=== PATIENT | male | born 1960 | race Caucasian/White ===

== ENCOUNTER → 2018-11-24 | Outpatient (CLI) | payer BC ==
[~2018-11-24] MED LIST: ASPI-496 PO; ATOR20TA37 PO; METO25TA35 PO; OMNIPAQUE 350 MG/ML, 150 ML BOTTLE ONE
== END | disposition home or self-care (01) ==
LOC: CFH 10:20
PROVIDERS: ATTEND Internal Medicine Cardiovascular Disease
DX: I48.91 Unspecified atrial fibrillation (principal)
CPT/HCPCS: 71046; 75572; Q9967

== ENCOUNTER 2018-11-29 08:21 | Observation (INO) | payer BC ==
[2018-11-24 11:48] VITALS: BP 127/76
[~2018-11-29] VITALS: Ht 190.5 cm; Wt 93.0 kg
[~2018-11-29 08:21] MED LIST changes: -OMNIPAQUE 350 MG/ML, 150 ML BOTTLE ONE
[2018-11-29] MEDS ORDERED: SODIUM CHLORIDE 0.9% 1,000 ML IV SCH (08:44)
[2018-11-29] MEDS ORDERED: SODIUM CHLORIDE 0.9% 1,000 ML IV ONE (09:00)
[2018-11-29] MEDS ORDERED: PHENYLEPHRINE 10 MG/ML ONE (09:36)
[2018-11-29] MEDS ORDERED: LIDOCAINE 1%, 20ML ONE (09:36)
[2018-11-29] MEDS ORDERED: MIDAZOLAM 1 MG/ML, 2ML ONE (09:37)
[2018-11-29] MEDS ORDERED: FENTANYL PF 250 MCG/5ML ONE (09:38)
[2018-11-29] MEDS ORDERED: PROTAMINE SULFATE 10 MG/ML, 5ML ONE (10:03)
[2018-11-29] MEDS ORDERED: EPHEDRINE 50 MG/ML, 1ML ONE (10:09)
[2018-11-29] MEDS ORDERED: DEXAMETHASONE 4 MG/ML, 1ML ONE ×2 (10:09)
[2018-11-29] MEDS ORDERED: PROPOFOL 10 MG/ML, 20ML ONE (10:09)
[2018-11-29] MEDS ORDERED: ROCURONIUM 10MG/ML,5ML ONE (10:09)
[2018-11-29] MEDS ORDERED: ONDANSETRON 2MG/ML, 2ML ONE ×2 (10:09)
[2018-11-29] MEDS ORDERED: SUCCINYLCHOLINE 20 MG/ML, 10ML ONE (10:09)
[2018-11-29] MEDS ORDERED: HEPARIN 1,000 UNITS/ML, 10ML ONE ×3 (10:10→11:26)
[2018-11-29] MEDS ORDERED: ACETAMINOPHEN 325 MG TABLET PO PRN ×2 (12:00→12:30)
[2018-11-29] MEDS ORDERED: ZOLPIDEM 5MG TABLET PO PRN (12:00)
[2018-11-29] MEDS ORDERED: LABETALOL 5MG/ML, 20ML IV PRN (12:30)
[2018-11-29] MEDS ORDERED: MORPHINE SULFATE 4 MG/ML, 1ML IVPush PRN (12:30)
[2018-11-29] MEDS ORDERED: ONDANSETRON ODT 8 MG PO PRN (12:30)
[2018-11-29] MEDS ORDERED: PROMETHAZINE 12.5 MG SUPP PR PRN (12:30)
[2018-11-29] MEDS ORDERED: ALBUTEROL SULFATE 2.5 MG/3 ML NPPB PRN (12:30)
[2018-11-29] MEDS ORDERED: hydrALAzine 20 MG/ML, 1ML IV PRN (12:30)
[2018-11-29] MEDS ORDERED: METOPROLOL TARTRATE 25 MG TABLET PO PRN (12:30)
[2018-11-29] MEDS ORDERED: ONDANSETRON 2MG/ML, 2ML IV PRN (12:30)
[2018-11-29] MEDS ORDERED: EPHEDRINE 50 MG/ML, 1ML IVPush PRN (12:30)
[2018-11-29] MEDS ORDERED: MIDAZOLAM 1 MG/ML, 2ML IV PRN (12:30)
[2018-11-29] MEDS ORDERED: DIAZEPAM 5 MG/ML, 2ML IVPush PRN (12:30)
[2018-11-29] MEDS ORDERED: HYDROmorphone 2 MG/ML, 1ML IVPush PRN (12:30)
[2018-11-29] MEDS ORDERED: PROMETHAZINE 25 MG/ML, 1ML IV PRN (12:30)
[2018-11-29] MEDS ORDERED: OXYcodone 5 MG/5 ML ORAL.SOL UDC PO PRN (12:30)
[2018-11-29] MEDS ORDERED: FENTANYL PF 100 MCG/2ML IV PRN (12:30)
[2018-11-29] MEDS ORDERED: MEPERIDINE/PF 25MG/0.5ML IVPush PRN (12:30)
[2018-11-29] MEDS ORDERED: HALOPERIDOL 5 MG/ML IV PRN (12:30)
[2018-11-29 14:00] VITALS: BP 120/76
[2018-11-29] MEDS ORDERED: APIXABAN 5 MG TABLET PO ONE (14:30)
[2018-11-29 19:50] VITALS: BP 102/59
[2018-11-29] MEDS: APIXABAN 5 MG TABLET PO SCH (20:58)
[2018-11-29] MEDS ORDERED: ATORVASTATIN 20 MG TABLET PO SCH (21:00)
[2018-11-30 04:30] VITALS: BP 100/62
[2018-11-30 07:30] VITALS: BP 126/68
[2018-11-30] MEDS: APIXABAN 5 MG TABLET PO SCH (07:41)
[2018-11-30] MEDS ORDERED: ACET325T14 PO (08:40)
[2018-11-30] MEDS ORDERED: APIX5TAB PO (08:40)
[2018-11-30 13:30] VITALS: BP 107/66
== END 2018-11-30 09:55 | disposition home or self-care (01) ==
LOC: CACL 08:21 → ORIP 12:00 → 5SO 13:28 → DCLOUNGE 11-30 09:40
PROVIDERS: ADMIT Internal Medicine Cardiovascular Disease; ATTEND Internal Medicine Cardiovascular Disease
DX: I48.91 Unspecified atrial fibrillation (principal); I48.92 Unspecified atrial flutter; R00.2 Palpitations
CPT/HCPCS: 85347; 93308; 93312; 93321; 93325; 93613; 93656; 93662; C1730; C1732; C1759; C1766; C1893; C1894; G0378; J0330; J1100; J1644; J2250; J2370; J2405; J2704; J2720; J3010; J3490; 93621

== ENCOUNTER → 2019-04-24 | Outpatient (CLI) | payer BC ==
[~2019-04-24] MED LIST changes: +ACET325T14 PO; +APIX5TAB PO; +FLEC50TA25 PO; +OMNIPAQUE 350 MG/ML, 150 ML BOTTLE ONE
== END | disposition home or self-care (01) ==
LOC: CFH 12:52
PROVIDERS: ATTEND Internal Medicine Cardiovascular Disease
DX: I48.91 Unspecified atrial fibrillation (principal)
CPT/HCPCS: 71046; 75572; Q9967

== ENCOUNTER 2019-04-25 06:31 | Observation (INO) | payer BC ==
[2019-04-24 14:12] VITALS: BP 124/77
[2019-04-24 14:44] LABS: BASOPHILS # (AUTO) 0.02 x10^3/uL (0-0.1); BASOPHILS % (AUTO) 0 % (0-1); EOSINOPHILS # (AUTO) 0.08 x10^3/uL (0-0.4); EOSINOPHILS % (AUTO) 2 % (1-7); LYMPHOCYTES # (AUTO) 1.41 x10^3/uL (1-3.4); LYMPHOCYTES % (AUTO) 26 % (22-44); MD NO; MEAN CORPUSCULAR HEMOGLOBIN 32.8 pg (27.5-34.5); MEAN CORPUSCULAR HGB CONC 33.7 g/dL (33.2-36.2); MEAN CORPUSCULAR VOLUME 97.1 fL (81-97); MEAN PLATELET VOLUME 8.6 fL (7.4-10.4); MONOCYTES # (AUTO) 0.46 x10^3/uL (0.2-0.8); MONOCYTES % (AUTO) 8 % (2-9); NEUTROPHILS % (AUTO) 64 % (42-75); PLATELET COUNT 209 x10^3/uL (130-400); RED BLOOD COUNT 4.52 x10^6/uL (4.38-5.82); RED CELL DISTRIBUTION WIDTH 12.8 % (9.4-14.8)
[2019-04-24 14:50] LABS: ALBUMIN 4.2 g/dL (3.4-5.0); ANION GAP 8 mmol/L (5-15); CALCIUM 8.4 mg/dL (8.5-10.1); CHLORIDE 105 mmol/L (98-107)
[2019-04-24 14:57] LABS: ALANINE AMINOTRANSFERASE 44 U/L (12-78); ALKALINE PHOSPHATASE 110 U/L (45-117); BILIRUBIN,TOTAL 0.6 mg/dL (0.2-1.0); CREATININE 0.74 mg/dL (0.7-1.3); TOTAL PROTEIN 7.4 g/dL (6.4-8.2)
[2019-04-24 14:59] LABS: INTERNATIONAL NORMALIZED RATIO 1.02 (0.93-1.1); PROTHROMBIN TIME 10.7 Seconds (9.6-11.5)
[~2019-04-25] VITALS: Ht 188 cm; Wt 98.0 kg
[~2019-04-25 06:31] MED LIST changes: -OMNIPAQUE 350 MG/ML, 150 ML BOTTLE ONE
[2019-04-25] MEDS ORDERED: SODIUM CHLORIDE 0.9% 1,000 ML IV SCH (06:44)
[2019-04-25] MEDS ORDERED: LIDOCAINE 1%, 20ML ONE (06:46)
[2019-04-25] MEDS ORDERED: SODIUM CHLORIDE 0.9% 1,000 ML IV ONE (07:00)
[2019-04-25] MEDS ORDERED: FENTANYL PF 250 MCG/5ML ONE (07:55)
[2019-04-25] MEDS ORDERED: MIDAZOLAM 1 MG/ML, 2ML ONE (07:55)
[2019-04-25] MEDS ORDERED: PROPOFOL 50 ML ONE (07:55)
[2019-04-25] MEDS ORDERED: ISOPROTERENOL 0.2MG/ML, 5ML ONE (07:56)
[2019-04-25] MEDS ORDERED: PROTAMINE SULFATE 10 MG/ML, 5ML ONE (07:56)
[2019-04-25] MEDS ORDERED: SUCCINYLCHOLINE 20 MG/ML, 10ML ONE (09:17)
[2019-04-25] MEDS ORDERED: ONDANSETRON 2MG/ML, 2ML ONE (09:17)
[2019-04-25] MEDS ORDERED: ROCURONIUM 10MG/ML,5ML ONE (09:17)
[2019-04-25] MEDS ORDERED: DEXAMETHASONE 4 MG/ML, 1ML ONE (09:17)
[2019-04-25] MEDS ORDERED: HEPARIN 1,000 UNITS/ML, 10ML ONE ×3 (09:17)
[2019-04-25] MEDS ORDERED: METOPROLOL TARTRATE 25 MG TABLET PO PRN (10:30)
[2019-04-25] MEDS ORDERED: DIAZEPAM 5 MG/ML, 2ML IVPush PRN (11:00)
[2019-04-25] MEDS ORDERED: EPHEDRINE 50 MG/ML, 1ML IM PRN (11:00)
[2019-04-25] MEDS ORDERED: MORPHINE SULFATE 4 MG/ML, 1ML IVPush PRN (11:00)
[2019-04-25] MEDS ORDERED: FENTANYL PF 100 MCG/2ML IV PRN (11:00)
[2019-04-25] MEDS ORDERED: EPHEDRINE 50 MG/ML, 1ML IVPush PRN (11:00)
[2019-04-25] MEDS ORDERED: ONDANSETRON ODT 8 MG PO PRN (11:00)
[2019-04-25] MEDS ORDERED: OXYcodone 5 MG/5 ML ORAL.SOL UDC PO PRN (11:00)
[2019-04-25] MEDS ORDERED: MEPERIDINE/PF 25MG/0.5ML IVPush PRN (11:00)
[2019-04-25] MEDS ORDERED: ACETAMINOPHEN 325 MG TABLET PO PRN (11:00)
[2019-04-25] MEDS ORDERED: DIPHENHYDRAMINE 50 MG/ML, 1ML IVPush PRN (11:00)
[2019-04-25] MEDS ORDERED: PROMETHAZINE 25 MG/ML, 1ML IV PRN (11:00)
[2019-04-25] MEDS ORDERED: hydrALAzine 20 MG/ML, 1ML IV PRN (11:00)
[2019-04-25] MEDS ORDERED: ONDANSETRON 2MG/ML, 2ML IV PRN (11:00)
[2019-04-25] MEDS ORDERED: MIDAZOLAM 1 MG/ML, 2ML IV PRN (11:00)
[2019-04-25] MEDS ORDERED: ACETAMINOPHEN 650 MG/20.3 ML UDC ONE (11:03)
[2019-04-25] MEDS: APIXABAN 5 MG TABLET PO SCH ×2 (11:28→21:21)
[2019-04-25] MEDS ORDERED: APIXABAN 5 MG TABLET ONE (11:28)
[2019-04-25 14:00] VITALS: BP 128/61
[2019-04-25 19:57] VITALS: BP 121/68
[2019-04-25] MEDS ORDERED: ATORVASTATIN 20 MG TABLET PO SCH (21:00)
[2019-04-25] MEDS: FLECAINIDE 50MG TABLET PO SCH (21:20)
[2019-04-26 01:02] VITALS: BP 129/75
[2019-04-26 07:10] VITALS: BP 103/66
[2019-04-26] MEDS: APIXABAN 5 MG TABLET PO SCH (08:19)
[2019-04-26] MEDS: FLECAINIDE 50MG TABLET PO SCH (08:19)
== END 2019-04-26 12:15 | disposition home or self-care (01) ==
LOC: CACL 06:31 → ORIP 10:26 → 5SO 11:53 → DCLOUNGE 04-26 12:01
PROVIDERS: ADMIT Internal Medicine Cardiovascular Disease; ATTEND Internal Medicine Cardiovascular Disease
DX: I48.91 Unspecified atrial fibrillation (principal); I48.92 Unspecified atrial flutter
CPT/HCPCS: 36415; 80053; 85025; 85347; 85610; 85730; 93308; 93312; 93321; 93325; 93613; 93655; 93656; 93657; 93662; C1730; C1732; C1759; C1766; C1893; C1894; G0378; J0330; J1100; J1644; J2250; J2405; J2704; J3010; J3490; J2720